=== PATIENT | female | born 1995 | race Caucasian/White ===

== ENCOUNTER 2021-07-09 19:35 | Emergency (ER) | payer OTHER ==
[~2021-07-09] VITALS: Ht 157.5 cm; Wt 67.1 kg
--- NOTE | 2021-07-09 20:13 | PHYS DOC ---
Past Medical History Past Medical History: Anxiety Additional Past Medical Histor: 2014 SVT ABLATION Past Surgical History: No Surgical History Smoking Status: Never Smoker Alcohol Use: Heavy General Adult EDM: Chief Complaint: WITHDRAWL HPI: HPI: Patient is a 26 year old female presented to the ED today requesting outpatient resources for alcohol use. Patient states she drinks 1 bottle of wine daily due to stress in her life. She states sometimes she drinks until she passes out. Patient denies any suicidal or homicidal ideations. Denies any abdominal pain, nausea or vomiting. Review of Systems: Review of Systems: Constitutional: Denies fever or chills. [] Eyes: Denies change in visual acuity. [] HENT: Denies nasal congestion or sore throat. [] Respiratory: Denies cough or shortness of breath. [] Cardiovascular: Denies chest pain or edema. [] GI: Denies abdominal pain, nausea, vomiting, bloody stools or diarrhea. [] : Denies dysuria. [] Musculoskeletal: Denies back pain or joint pain. [] Integument: Denies rash. [] Neurologic: Denies headache, focal weakness or sensory changes. [] Psychiatric: Reports alcohol use Heart Score: C/O Chest Pain: N/A Risk Factors: Risk Factors: DM, Current or recent (<one month) smoker, HTN, HLP, family history of CAD, obesity. Risk Scores: Score 0 - 3: 2.5% MACE over next 6 weeks - Discharge Home Score 4 - 6: 20.3% MACE over next 6 weeks - Admit for Clinical Observation Score 7 - 10: 72.7% MACE over next 6 weeks - Early Invasive Strategies Allergies: Allergies: Allergies Coded Allergies Type Severity Reaction Last Updated Verified No Known Drug Allergies 07/09/21 No Physical Exam: PE: Constitutional: Well developed, well nourished, no acute distress, non-toxic appearance. [] HENT: Normocephalic, atraumatic, bilateral external ears normal, oropharynx moist, no oral exudates, nose normal. [] Eyes: PERRLA, EOMI, conjunctiva normal, no discharge. [] Neck: Normal range of motion, no tenderness, supple, no stridor. [] Cardiovascular:Heart rate regular rhythm, no murmur [] Lungs & Thorax: Bilateral breath sounds clear to auscultation [] Abdomen: Bowel sounds normal, soft, no tenderness, no masses, no pulsatile masses. [] Skin: Warm, dry, no erythema, no rash. [] Back: No tenderness, no CVA tenderness. [] Extremities: No tenderness, no cyanosis, no clubbing, ROM intact, no edema. [] Neurologic: Alert and oriented X 3, normal motor function, normal sensory function, no focal deficits noted. [] Psychologic: Affect normal, judgement normal, mood normal. [] Current Patient Data: Vital Signs: Vital Signs Date Time Temp Pulse Resp B/P (MAP) Pulse Ox O2 Delivery O2 Flow Rate FiO2 07/09/21 19:38 98.3 127 20 141/85 (103) 95 Room Air 98.3 EKG: EKG: [] Radiology/Procedures: Radiology/Procedures: [] Course & Med Decision Making: Course & Med Decision Making Pertinent Labs and Imaging studies reviewed. (See chart for details) This a 26-year-old female patient presenting to the ED today requesting resources for alcohol use. Patient drinks 1 bottle of wine daily. CBC, CMP, UA with no acute findings. Alcohol level 65, UDS also positive for benzodiazepines. Patient was given IV fluids. Goyo from the PAT team gave her resources for follow-up, D/c to home Dragon Disclaimer: Dragniyah Disclaimer: This electronic medical record was generated, in whole or in part, using a voice recognition dictation system. Departure Departure Impression: Primary Impression: ETOH abuse Disposition: HOME / SELF CARE / HOMELESS Condition: STABLE Patient Instructions: Alcohol Problems Additional Instructions: You were evaluated in the emergency room, please follow-up with resources provided to you by Goyo from the psychiatrist assessment team MANDY BROWN APRN Jul 09, 2021 20:13
[2021-07-09 20:28] LABS: BASO % 1 % (0-3); EOS % 0 % (0-3); HEMATOCRIT 38.6 % (36.0-47.0); HEMOGLOBIN 13.4 g/dL (12.0-15.5); LYMPH # 1.6 x10^3/uL (1.0-4.8); LYMPH % 32 % (24-48); MEAN CORPUSCULAR HEMOGLOBIN 33 pg (25-35); MEAN CORPUSCULAR HGB CONC 35 g/dL (31-37); MEAN CORPUSCULAR VOLUME 94 fL (79-100); MONO # 0.8 x10^3/uL (0.0-1.1); MONO % 17 % (0-9); NEUT # 2.5 x10^3/uL (1.8-7.7); NEUT % 50 % (31-73); PLATELET COUNT 226 x10^3/uL (140-400); RED CELL DISTRIBUTION WIDTH 15.1 % (11.5-14.5)
[2021-07-09 20:38] LABS: CALCIUM 8.4 mg/dL (8.5-10.1); CREATININE 0.7 mg/dL (0.6-1.0); POTASSIUM 3.9 mmol/L (3.5-5.1)
[2021-07-09 20:43] LABS: ALBUMIN 3.2 g/dL (3.4-5.0); ALBUMIN/GLOBULIN RATIO 0.8 (1.0-1.7); TOTAL BILIRUBIN 0.4 mg/dL (0.2-1.0)
[2021-07-09 20:46] LABS: ACETAMIN < 2 mcg/ml (10-30); ETHANOL 65 mg/dL (0-10); SALIC 0.5 mg/dL (2.8-20.0)
[2021-07-09 20:52] LABS: BILIRUBIN,URINE NEGATIVE (NEG); CLARITY,URINE CLEAR; COLOR,URINE AMBER; NITRITE,URINE NEGATIVE (NEG); PROTEIN,URINE NEGATIVE (NEG-TRACE); UROBILINOGEN,URINE 0.2 mg/dL (0.2 mg/dL)
[2021-07-09 21:00] LABS: BACTERIA,URINE FEW /HPF (0-FEW); BARBITURATES NEG (NEG); BENZODIAZEPINES POS (NEG); CANNABINOIDS NEG (NEG); COCAINE NEG (NEG); METHADONE NEG (NEG); OPIATES NEG (NEG); PHENCYCLIDINE NEG (NEG); RBC,URINE 0 /HPF (0-2); WBC,URINE 0 /HPF (0-4)
[2021-07-09 21:02] LABS: AMPHETAMINE/METHAMPHETAMINE NEG (NEG)
[2021-07-09] MEDS ORDERED: IV NORMAL SALINE 1000ML BAG 1,000 ML IV ONE (22:30)
[2021-07-10] MEDS ORDERED: ONDANSETRON PF 4 MG/2 ML VIAL. IVP ONE (01:00)
[2021-07-10] MEDS ORDERED: KETOROLAC 30 MG/ML VIAL. IVP ONE (01:00)
[2021-07-10 01:22] VITALS: BP 121/83
== END 2021-07-10 01:40 | disposition home or self-care (01) ==
LOC: ER 19:35
DX: F10.20 Alcohol dependence, uncomplicated (principal); Y90.3 Blood alcohol level of 60-79 mg/100 ml; F41.9 Anxiety disorder, unspecified
CPT/HCPCS: 36415; 80053; 80307; 80329; 81001; 83690; 85025; 96361; 96374; 96375; 99285; G0480; J1885; J2060; J2405; J7030